=== PATIENT | female | born 1985 | race Two or more races ===

== ENCOUNTER 2025-07-12 03:52 | Emergency (ER) | payer MEDICAID, OTHER ==
[2025-07-12] MEDS ORDERED: clonazePAM 0.5 MG TAB PO ONE (04:30)
[2025-07-12 04:51] VITALS: BP 145/99; PULSE 99; RESP 17; TEMP 98; O2SAT 98
--- NOTE | 2025-07-12 05:03 | ED.PDOC ---
General HPI Comments Pt complaints of cough x 2 days with anxiety today. Pt denies any fever, n/v. Pt also reports pain on urination. Pt presents with other family members who have similar symptoms.. Patient admits to ETOH tonight. Chief Complaint: Cough Time Seen by MD: 04:09 Reviewed notes: Nurses Notes, Medications, Allergies Allergies: Coded Allergies: No Known Drug Allergy (Verified Allergy, Unknown, 07/12/25) Information Source: Patient Mode of Arrival: Ambulatory Past Medical History PAST MEDICAL HISTORY: Denies Surgical History: Denies all surgeries [employer] History: No Pertinent [employer] History Family History Family History: Reviewed,noncontributory to illness Social History Smoker: Non-Smoker Alcohol: Occasionally Drugs: Denies Drug Use All Other Systems: Reviewed and Negative (see hpi) Physical Exam General Appearance: No Apparent Distress, Normal HEENT: Pharynx Normal Neck: Full Range of Motion, Non-Tender Respiratory: Lungs Clear, No Respiratory Distress, Normal Breath Sounds Cardiovascular: No Edema, No JVD, No Murmur, No Gallop, Normal Peripheral Pulses, Regular Rate/Rhythm Breast Exam: Deferred Gastrointestinal: No Organomegaly, Non Tender, No Pulsatile Mass, Normal Bowel Sounds, Soft, Other (Negative CVA tenderness) Genitalia: Deferred Pelvic: Deferred Rectal: Deferred Extremities: Normal capillary refill, Normal range of motion Musculoskeletal : Apperance: Normal Neurologic: Alert, No Motor Deficits, Normal Affect, Normal Mood, No Sensory Deficits Cerebellar Function: Normal Reflexes: NOT DONE Skin: Dry, Normal Color, Warm Lymphatic: No Adenopathy Was a procedure done? Was a procedure done?: No Differential Diagnosis Kidney stone (Female): Musculoskeletal pain, Urinary obstruction, Urolithiasis Urinary Problem (Female): UTI X-Ray, Labs, Meds, VS Vital Signs Date Time Temp Pulse Resp B/P (MAP) Pulse Ox O2 Delivery O2 Flow Rate FiO2 07/12/25 04:51 98.0 99 17 145/99 (114) 98 98.0 07/12/25 04:51 99 17 98 Room Air 07/12/25 03:54 97.9 102 16 144/85 99 97.9 Lab Test 07/12/25 04:50 Range/Units Urine Color Light-orange Yellow Urine Clarity Ex.turbid Clear Urine pH 6.0 5.0-9.0 Urine Specific [place] 1.018 1.001-1.035 Urine Protein 2+ H Negative Urine Ketones Negative Negative Urine Blood 3+ H Negative /uL Urine Nitrite Negative Negative Urine Bilirubin Negative Negative Urine Urobilinogen 2 H Negative mg/dL Urine Leukocyte Esterase 3+ Negative /uL Urine RBC 624 0 - 4 /hpf Urine WBC Clumps Present None Seen /hpf Urine Microscopic WBC 2464 H 0-5 /HPF Urine Squamous Epithelial Cells Many <5 /hpf Urine Transitional Epithelial Cells Few <2 /hpf Urine Bacteria Many H None Seen /hpf Urine Hyaline Casts Mod 0 - 2 /lpf Urine Mucus Few None Seen Urine Glucose Normal Normal mg/dL X-Ray, Labs, Meds, VS Comment Patient does not appear to be anxious on exam. Alert and oriented x3. UA grossly positive for infection. Patient given Rocephin 1 g IM. Script trial of Bactrim. Advised to take medication as prescribed side effects discussed. Advised to rest increase p.o. fluids with electrolytes. Avoid caffeinated drinks. Follow up with your PCP in 2-3 days consider repeat urine and culture if symptoms persist. ER return precautions given patient indicates understanding and agrees with discharge plan of care. Time of 1ST Reevaluation: 04:09 Reevaluation 1ST: Unchanged Time of 2ND Reevaluation: 05:22 Reevaluation 2ND: Improved Patient Education/Counseling: Diagnosis, Treatment, Need For Follow Up Family Education/Counseling: Diagnosis, Treatment, Need For Follow Up SEPSIS Sepsis Screen Date sepsis recognized/suspect: Jul 12, 2025 Time Sepsis recognized/suspect: 354 Recent Procedure: No On Antibiotic Therapy: No Respiratory Rate >20: No Heart Rate >90: Yes Temp<36 C (96.8 F) or >38.3 C: No SBP <90 or MAP <65 mmHG: No New Acute Mental Status Change: No Is the patient on CPAP, BIPAP,: No Physician Orders Ceftriaxone Sodium (Rocephin) (07/12/25 05:30) Vital Signs Date Time Temp Pulse Resp B/P (MAP) Pulse Ox O2 Delivery O2 Flow Rate FiO2 07/12/25 04:51 98.0 99 17 145/99 (114) 98 98.0 07/12/25 04:51 99 17 98 Room Air 07/12/25 03:54 97.9 102 16 144/85 99 97.9 Departure 1 Departure Time of Disposition: 05:22 Impression: Primary Impression: Cystitis with hematuria Disposition: HOME / SELF CARE / HOMELESS Condition: Stable e-Prescriptions Ibuprofen Micronized (MOTRIN TABLET) 600 Mg Tb 600 MG PO TID PRN for 5 Days, #15 TAB *Black box warning-NSAIDS can increase risk of TX & hypertension, GI irritation, ulceration, bleed, perferation. Do not use post cardiac surgery. Use short duration/lowest effective dose. Prov: MAME BREWER 07/12/25 Sulfamethoxazole W/Trimethopri (Bactrim Ds Tablet) 1 Tab Tb 1 TAB PO BID for 7 Days, #14 TAB Prov: MAME BREWER 07/12/25 Discharged With: Self Critical Care Note Critical Care Time?: No Stability Stability form required: MAME Joiner Jul 12, 2025 05:03
[2025-07-12 05:16] LABS: Urine Protein, UAD 2+ (Negative); Urine WBC Clumps PRESENT /hpf (None Seen)
[2025-07-12] MEDS ORDERED: IBU600T PO (05:27)
[2025-07-12] MEDS ORDERED: BACDST PO (05:27)
[2025-07-12] MEDS: cefTRIAXone SOD 1,000 MG VL IM ONE (05:33)
== END 2025-07-12 05:35 | disposition home or self-care (01) ==
LOC: ER 03:52
DX: N30.91 Cystitis, unspecified with hematuria (principal); F41.9 Anxiety disorder, unspecified; Z79.899 Other long term (current) drug therapy
CPT/HCPCS: 81001; 96372; 99283; J0696